=== PATIENT | male | born 1945 | race Caucasian/White ===

== ENCOUNTER → 2016-12-15 | Outpatient (CLI) | payer OTHER ==
[~2016-12-15] VITALS: Ht 188 cm; Wt 93.4 kg
[~2016-12-15] MED LIST: ALDACTONE25 MG PO; ASPIRIN81 M2 PO; CRESTOR10 MG PO; HYDROCODONE-AP1 EAC6 PO; IBUPROFEN 400400 M1 PO; LOSARTAN POTAS100 MG PO; METFORMIN HCL500 MG PO; PLAVIX 75 MG TA75 M1 PO; VITAMIN D-32000 UNIT PO
--- NOTE | ~2016-12-15 | HPC ---
[facility] [address] [address] [address] PAIN MANAGEMENT CONSULTATION Name: EULOGIO ZUNIGA Room #: REG LEANNE Kathrin#: [id number] Admission: 12/15/16 Attend Phys: Oscar Aponte MD Discharge: Date of : 47 Report #: [id number] THIS REPORT FOR: //name// CC: Oscar Galvin DATE OF SERVICE: 12/15/2016 Followup visit for lumbar radiculopathy, post-laminectomy. The patient returns to pain clinic today for an epidural injection. The record will reflect that he has had recurring symptoms of lumbar radiculopathy and has been an excellent responder to epidural injections. His last injection was nearly 1 year ago. After he had his injection, he went out and hiked several mountains in [place]!. His pain relief was nearly immediate. Pain is a 4 today and he and his have a trip planned to [facility] for river cruise. He would like another injection. He is on Plavix typically following a stent procedure. He discontinued it under the direction of his physician for 7 days for his injection today. MEDICATIONS: Crestor, Glucophage, Plavix, Aldactone, losartan, vitamin D, hydrocodone 5/325 as needed and ibuprofen. ALLERGIES: None. PAST MEDICAL HISTORY: Significant for coronary artery disease with bypass in 1995. PAST SURGICAL HISTORY: Back surgery in 1977 and 1984. SOCIAL HISTORY: Denies tobacco or alcohol. Remains very fit and active. 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 PHYSICAL EXAMINATION: Pleasant and active 71-year-old who looks fit and healthy. Blood pressure 119/64, heart rate 69, BMI is 26.4. He moves from sitting to standing position. He ambulates with minimal difficulty. Tenderness across the low back. He has positive straight leg raising. IMPRESSION: Right lumbar radiculopathy, L5-S1. PROCEDURE: L5-S1 epidural injection under fluoroscopic guidance. He was taken to the fluoroscopic suite, placed prone, skin prepped with ChloraPrep. Skin anesthetized over the L5-S1 midline. A 20-gauge [facility] [address] [place] [address] PAIN MANAGEMENT CONSULTATION Name: EULOGIO ZUNIGA Room #: REG [facility] Rashid.#: [id number] Admission: 12/15/16 Attend Phys: Oscar Aponte MD Discharge: Date of : 47 Report #: [id number] epidural needle advanced first attempt in the epidural space with loss of resistance. No blood or CSF aspirated. 1 mL of Omnipaque injected. Spread of dye observed nicely in the epidural space followed by 3 mL of 0.5% lidocaine mixed with 80 mg of triamcinolone. He tolerated the procedure well, was observed for 45 minutes and discharged. Follow up as needed. By: [id number] Oscar Aponte MD /nt
[2016-12-15 13:45] VITALS: BP 119/64
== END | disposition home or self-care (01) ==
LOC: PAIN 06:47
DX: M54.16 Radiculopathy, lumbar region (principal); M96.1 Postlaminectomy syndrome, not elsewhere classified; I25.10 Atherosclerotic heart disease of native coronary artery without angina pectoris; Z95.1 Presence of aortocoronary bypass graft; Z98.890 Other specified postprocedural states; F17.200 Nicotine dependence, unspecified, uncomplicated

== ENCOUNTER → 2017-02-01 | Outpatient (CLI) | payer OTHER | LOC: RAD 14:54 | DX: M47.897 Other spondylosis, lumbosacral region (principal); M16.11 Unilateral primary osteoarthritis, right hip ==

== ENCOUNTER → 2017-02-10 | Outpatient (CLI) | payer OTHER | LOC: MRI 08:27 | DX: M47.896 Other spondylosis, lumbar region (principal); M48.06 Spinal stenosis, lumbar region; M16.11 Unilateral primary osteoarthritis, right hip ==

== ENCOUNTER → 2017-03-02 | Outpatient (CLI) | payer OTHER ==
[~2017-03-02] VITALS: Ht 188 cm; Wt 89.5 kg
--- NOTE | ~2017-03-02 | HPC ---
[facility] [address] [address] PAIN MANAGEMENT CONSULTATION Name: EULOGIO ZUNIGA Room #: REG LEANNE Kathrin#: [id number] Admission: 03/02/17 Attend Phys: Oscar Aponte MD Discharge: Date of : 47 Report #: [id number] THIS REPORT FOR: //name// CC: Oscar Galvin DATE OF SERVICE: 03/02/2017 Followup visit for right lumbar radiculopathy. The patient returns to pain clinic today for an epidural steroid injection. I spoke with Dr. Galvin about his case. He has persistent recurring pain that occurs in the right leg, it follows an L5-S1 distribution. He has had previous laminectomy times 2, the last surgery was in 1984. He is very active. 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 Recently, he returned from [facility] and a trip to [place]. The activity certainly increases his pain, hopefully the epidural steroid injection will provide him with additional relief. Additional surgery may be indicated and he is going to see Dr. Woody in consultation as well. He has coronary artery disease and is on Plavix. It was discontinued for a week in anticipation of an epidural injection today. Other medications are ibuprofen, hydrocodone, losartan, spironolactone, and ____. PHYSICAL EXAMINATION: He is a fit-appearing 71-year-old, moves easily from sitting to standing position and ambulates without difficulty other than mild antalgic feature to his gait. Blood pressure 119/64, heart rate 69, respirations 16. He has positive straight leg raising on the right following the L5 distribution all the way down into the ankle. IMPRESSION: 1. Lumbar radiculopathy, right L5-S1 distribution. 2. There is also neural foraminal stenosis at L4, there may be some component of compression at that level. RECOMMENDATIONS: Repeat epidural injection paramedian right L5-S1 under fluoroscopic guidance. PROCEDURE: He was taken to fluoroscopic suite, placed prone. Skin prepped with ChloraPrep. Skin anesthetized to the right of midline at L5-S1. A 20-gauge Tuohy epidural needle was advanced at first attempt into the epidural space with [facility] [address] [place] [address] PAIN MANAGEMENT CONSULTATION Name: EULOGIO ZUNIGA Room #: REG [facility] [id number] Admission: 03/02/17 Attend Phys: Oscar Aponte MD Discharge: Date of : 47 Report #: [id number] loss of resistance. There was no blood nor CSF aspirated. 1 mL of Omnipaque was injected with excellent spread of dye observed in the epidural space. This was followed by 3 mL of 0.5% lidocaine mixed with 80 mg of triamcinolone. He tolerated the procedure well and was observed for 45 minutes and discharged. Followup visit planned in the pain clinic as needed. He will resume his Plavix ____. By: [id number] Oscar Aponte MD /ozzy
[2017-03-02 09:03] VITALS: BP 148/75
== END | disposition home or self-care (01) ==
LOC: PAIN 06:46
DX: M54.16 Radiculopathy, lumbar region (principal); M48.06 Spinal stenosis, lumbar region; I25.10 Atherosclerotic heart disease of native coronary artery without angina pectoris; Z79.899 Other long term (current) drug therapy; Z98.890 Other specified postprocedural states; F17.200 Nicotine dependence, unspecified, uncomplicated

== ENCOUNTER → 2017-04-19 | Outpatient (CLI) | payer OTHER | LOC: CAT 07:40 | DX: N28.1 Cyst of kidney, acquired (principal) ==

== ENCOUNTER → 2017-05-03 | Outpatient (CLI) | payer OTHER | LOC: NUC 13:41 | DX: M81.0 Age-related osteoporosis without current pathological fracture (principal); M85.88 Other specified disorders of bone density and structure, other site; F17.200 Nicotine dependence, unspecified, uncomplicated ==

== ENCOUNTER → 2017-12-05 | Outpatient (CLI) | payer OTHER | LOC: RAD 11:01 | DX: M17.12 Unilateral primary osteoarthritis, left knee (principal); M11.262 Other chondrocalcinosis, left knee; M79.89 Other specified soft tissue disorders; M25.542 Pain in joints of left hand; R40.1 Stupor ==

== ENCOUNTER → 2018-10-01 | Outpatient (CLI) | payer OTHER ==
[~2018-10-01] VITALS: Ht 188 cm; Wt 100.9 kg
[~2018-10-01] MED LIST changes: +KLOR-CON 1010 MEQ PO
--- NOTE | ~2018-10-01 | HPC ---
[facility] [place] [address] [address] [place] [address] PAIN MANAGEMENT CONSULTATION Name: EULOGIO ZUNIGA Room #: REG TYRELWing Pinon#: [id number] Admission: 10/01/18 ������������������ Attend Phys: Oscar Aponte MD Discharge: ������������������ Date of : 47 Report #: [id number] THIS REPORT FOR: //name// CC: Oscar Galvin MD DATE OF SERVICE: 10/01/2018 Followup visit for recurrent lumbar radiculopathy, post-laminectomy syndrome. The patient returns to pain clinic today with recurring pain in the low back, with radiation through the L5-S1 distribution on the left. I had previously treated him for lumbar radiculopathy successfully with epidural injections on several occasions. His last injections were performed in 2017. It has been over 18 months. The pain is now returning to a level where he scores it as a 5 or more. It is made worse with standing, walking and it is worse in the morning. Pain does go as far as the foot on the left and he has some radiating pain in both legs. His back surgeries were in 1977 and 1984. He did well for many years before beginning to develop lumbar radicular symptoms. MRI has shown evidence of lumbar spondylosis and bilateral recess stenosis and foraminal stenosis at L4-L5. There is a right lateral foraminal disk protrusion at L4-L5 and impingement on the L4 nerve root and there is milder spinal stenosis above. We treated him at the base of the spine to avoid the scar tissue from his previous laminectomy. MEDICATIONS: Potassium, cholecalciferol and spironolactone. He has been off Plavix for over a year. He is on Crestor. ALLERGIES: None. PAST MEDICAL HISTORY: Significant for hypertension. SOCIAL HISTORY: The patient denies tobacco, but drinks alcohol, 2-3 beverages per week. 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 PHYSICAL EXAMINATION: GENERAL: He is a healthy appearing 73-year-old. VITAL SIGNS: Blood pressure is 137/74, heart rate 64 and respirations 16. He is 6 feet 2 inches, 222 pounds with a BMI of 28.5. EXTREMITIES: He moves from a sitting to standing position independently, walks without antalgic features. [address] [address] PAIN MANAGEMENT CONSULTATION Name: EULOGIO ZUNIGA Room #: REG [facility] Kathrin#: [id number] Admission: 10/01/18 ������������������ Attend Phys: Oscar Aponte MD Discharge: ������������������ Date of : 47 Report #: [id number] CHEST: Clear. CARDIAC: Rhythm is regular. MUSCULOSKELETAL: Examination of the spine reveals a long scar from previous surgery that is mildly tender. There is positive straight leg raising noted bilaterally. It is worse on the left and radiates into the ankle following an L5 distribution. IMPRESSION: 1. Low back pain with radiculopathy, following an L5 distribution on the left. History of previous response to epidural injection. 2. Post-laminectomy syndrome. RECOMMENDATIONS: Repeat epidural injection under fluoroscopic guidance. DESCRIPTION OF PROCEDURE: After informed consent, he was taken to the fluoroscopic suite. He was placed in the prone position. Skin prepped with ChloraPrep, anesthetized over L5-S1 to the left to midline and a 20-gauge Tuohy epidural needle advanced first attempt in the epidural space with loss of resistance. There was no blood or CSF aspirated. A milliliter of Omnipaque injected and good spread of dye seen within the epidural space, spreading bilaterally. It was followed by 3 mL of 0.5% lidocaine mixed with 80 mg of triamcinolone. He tolerated the procedure well, was observed for 45 minutes and discharged. Followup visit planned in the pain clinic on an as-needed basis for possible repeat injection. It should be noted that he has had a series of 3 injections on one occasion in the past, two injections at his last go-around and we are hoping that single injection may be all that he needs for resolution of his symptoms today. ��������������������������������������������� ���������������������������������������� By: ��������������������������������������������� [id number] [id number] Oscar Aponte MD /ozzy
[2018-10-01 10:32] VITALS: BP 137/74
--- NOTE | 2018-10-01 10:41 | NUR ---
Pain Clinic Assessment: 1. History of Osteoarthritis: Not Applicable History of Rheumatoid Arthritis: Not Applicable 2. Height: 6 ft. 2 in. 188.0 cm. Weight: 222.4 lb. oz. 100.880 kg. Patient's BMI: 28.5 3. Vital Signs: BP: 137/74 Pulse: 64 Resp: 16 Temp: 02 Sat: 100 ECG Mon: 4. Pain Intensity: 5 5. Fall Risk: Dizziness: N Needs help standing or walking: N Fallen in the last 3 months: N Fall risk comments: 6. Patient on Blood Thinner: Clopidogrel Bisulf(Plavix 7. History of Hypertension: Y 8. Opioid Therapy greater than 6 weeks: N Opiate Contract Signed: 9. Risk Assessment Tool Provided: LOW 10. Functional Assessment Tool: 11. Recreational Drug Use: Never Drug Type: Tobacco Use: Former Smoker Tobacco Type: Amount or Packs/day: How Many Years: Alcohol Use: Yes Frequency: Weekly Quant: 2-4
== END | disposition home or self-care (01) ==
LOC: PAIN 06:52
DX: M54.16 Radiculopathy, lumbar region (principal); Z79.899 Other long term (current) drug therapy; G89.29 Other chronic pain; M96.1 Postlaminectomy syndrome, not elsewhere classified; I10 Essential (primary) hypertension; Z87.891 Personal history of nicotine dependence; Z98.890 Other specified postprocedural states

== ENCOUNTER → 2018-12-07 | Outpatient (CLI) | payer OTHER | LOC: MRI 11:00 | DX: I67.82 Cerebral ischemia (principal) ==

== ENCOUNTER → 2019-02-01 | Outpatient (CLI) | payer OTHER | LOC: CAT 10:04 | DX: G93.9 Disorder of brain, unspecified (principal) ==